=== PATIENT | female | born 1980 | race Caucasian/White ===

== ENCOUNTER 2017-07-16 17:08 | Emergency (ER) | payer SELFPAY ==
[~2017-07-16] VITALS: Ht 162.6 cm; Wt 98.4 kg
[2017-07-16 17:08] VITALS: BP 134/88
[2017-07-16] MEDS ORDERED: HYDR-971 PO (17:37)
--- NOTE | 2017-07-16 17:37 | PHYS DOC ---
Adult General Chief Complaint Chief Complaint: DENTAL PROBLEM HPI HPI 36-year-old female patient complaining of right lower jaw and some tooth pain for 1 week that getting worse gradually. Patient was seen by dentist and referred to oral surgeon for removal of wisdom teeth and instructed to come to ER to get pain medication. Review of Systems Review of Systems Constitutional: Denies fever or chills [] Eyes: Denies change in visual acuity, redness, or eye pain [] HENT: Denies nasal congestion or sore throat [] Respiratory: Denies cough or shortness of breath [] Cardiovascular: No additional information not addressed in HPI [] GI: Denies abdominal pain, nausea, vomiting, bloody stools or diarrhea [] : Denies dysuria or hematuria [] Musculoskeletal: Denies back pain or joint pain [] Integument: Denies rash or skin lesions [] Neurologic: Denies headache, focal weakness or sensory changes [] Endocrine: Denies polyuria or polydipsia [] All other systems were reviewed and found to be within normal limits, except as documented in this note. Allergies Allergies Allergies Coded Allergies Type Severity Reaction Last Updated Verified tramadol Allergy Severe tongue swelling 07/16/17 Yes Uncoded Allergies Type Severity Reaction Last Updated Verified oxycarbenzaprine Allergy Severe tongue swelling 07/16/17 seroqual Allergy Severe tongue swelling 07/16/17 trazadone Allergy Severe tongue swelling 07/16/17 Physical Exam Physical Exam Constitutional: Well nourished, mild distress, non-toxic appearance. [] HENT: Normocephalic, atraumatic, bilateral external ears normal, oropharynx moist, no oral exudates, nose normal, right lower wisdom tooth with mild inflamed gum without abscess . [] Eyes: PERRLA, EOMI, conjunctiva normal, no discharge. [] Neck: Normal range of motion, no tenderness, supple, no stridor. [] Cardiovascular:Heart rate regular rhythm, no murmur [] Lungs & Thorax: Bilateral breath sounds clear to auscultation [] Neurologic: Alert and oriented X 3, normal motor function, normal sensory function, no focal deficits noted. [] Psychologic: anxious, judgement normal, mood normal. [] EKG EKG [] Radiology/Procedures Radiology/Procedures [] Dragon Disclaimer Dragon Disclaimer This electronic medical record was generated, in whole or in part, using a voice recognition dictation system. Departure Departure: Impression: Primary Impression: Dentalgia Additional Impressions: Tobacco abuse Tobacco abuse counseling Disposition: HOME, SELF-CARE (At 1735) Condition: STABLE Referrals: PCPTIFFANY (PCP) Patient Instructions: Dental Caries, Smoking Cessation Additional Instructions: Follow-up with your oral surgeon as scheduled. Scripts Hydrocodone Bit/Acetaminophen (NORCO 5-325 TABLET) 1 Each Tablet 1 TAB PO PRN Q6HRS Y for PAIN, #12 TAB 0 Refills Prov: KAUR BURTON MD 07/16/17 Problem Qualifiers KAUR BURTON MD Jul 16, 2017 17:37
== END 2017-07-16 17:45 | disposition home or self-care (01) ==
LOC: ER 17:08
DX: K08.89 Other specified disorders of teeth and supporting structures (principal); F17.200 Nicotine dependence, unspecified, uncomplicated; Z71.6 Tobacco abuse counseling; Z88.6 Allergy status to analgesic agent
CPT/HCPCS: 99283